=== PATIENT | male | born 1960 | race African-American/Black ===

== ENCOUNTER 2021-12-12 11:39 | Day surgery (SDC) | payer OTHER, SELFPAY ==
[2021-12-12] VITALS (10 sets, daily range): BP systolic 128–157; BP diastolic 75–106; PULSE 54–115; RESP 16–22; TEMP 35.9–36.8; O2SAT 92–100
--- NOTE | ~2021-12-12 | XR_ITS ---
EXAMINATION: XR hand LT min 3V DATE: 12/12/2021 12:11 INDICATION: Left hand injury with a circular saw. TECHNIQUE: 3 views of left hand were obtained. COMPARISON: None. FINDINGS: Bone alignment is normal. No fracture. There is mild osteoarthritis of first carpometacarpa l joint and many of the metacarpophalangeal joints and interphalangeal joints. There is moderate oste oarthritis of third metacarpophalangeal joint, first interphalangeal joint, and second proximal and d istal interphalangeal joints. There is a 1 mm density dorsal to first metacarpophalangeal joint. IMPRESSION: 1. Polyarticular osteoarthritis. 2. 1 mm density dorsal to first metacarpophalangeal joint at or near the skin that may be a foreign b elisa. Reviewed, dictated and finalized at location A. IMPRESSION: 1. Polyarticular osteoarthritis. 2. 1 mm density dorsal to first metacarpophalangeal joint at or near the skin t hat may be a foreign body.
--- NOTE | 2021-12-12 12:11 | PC.NURSE ---
NaCl used for wound cleaning.
--- NOTE | 2021-12-12 13:07 | ED.WOUNDLAC ---
HPI - Wound/Laceration General Chief Complaint: Wound/Laceration Stated Complaint: hand laceration Time Seen by Provider: 12/12/21 12:48 Source: patient Mode of arrival: ambulatory Limitations: no limitations History of Present Illness HPI narrative: 61 y/o male presents to the ER today for evaluation for large laceration to his left hand. He was using a weed eater that had a circular saw blade attached to it. He had it pointed up in the air and to trim vaughn and his left hand brushed up against the blade causing a large laceration across the palm of his hand. He can feel all of his fingers. He can flex and extend all of his fingers normally. He is not sure when he had his last tetanus shot. PMH significant for a fib and he is on blood thinner. Related Data Allergies Allergy/AdvReac Type Severity Reaction Status Date / Time No Known Allergies Allergy Verified 12/12/21 11:55 Review of Systems Constitutional: Constitutional: Denies chills, Denies fever(s) and Denies weakness Eyes: Eyes: Reports no additional eye complaints ENT: Denies dizziness Cardiovascular: Cardiovascular: Reports no additional cardiovascular complaints and Denies chest pain Respiratory: Respiratory: Reports no additional respiratory complaints, Denies chest congestion, Denies cough, Denies dyspnea and Denies wheezing Gastrointestinal: Gastrointestinal: Denies abdominal pain, Denies diarrhea, Denies nausea and Denies vomiting Genitourinary: Genitourinary: Reports no additional male genitourinary complaints Musculoskeletal: Musculoskeletal: Reports no additional musculoskeletal complaints and Reports as per HPI Integumentary/Breasts: Skin/Breast: Reports as per HPI Neurologic: Denies numbness Psychiatric: Psychiatric: Reports no additional psychiatric complaints Endocrine: Endocrine: Reports no additional endocrine complaints [facility] Past Medical History Medical History (Updated 12/12/21 @ 15:49 by Larissa Griffith APRN) Atrial fibrillation Exam Const: General: healthy appearing and no acute distress Orientation/consciousness: patient oriented x3 HENMT: Head: normal to inspection Eyes: Conjunctivae: conjunctivae normal Neck: Neck: normal visual inspection Chest: Chest palpation & inspection: normal inspection of the chest Resp: Effort & Inspection: normal respiratory effort Auscultation: clear to auscultation bilaterally Cardio: Rate: regular rate Rhythm: regular rhythm Back/Spine/Pelvis: Back: no CVA tenderness Skin: General skin exam: normal color Other: 13 cm laceration across palm of hand from base of fifth finger to the proximal thumb, linear, rough edges, no apparent tendon damage, involves the subcutaneous tissue, possibly muscle tissue, bleeding heavily when dressing removed. No arterial spurting noted, no visible FB, distal cap refill intact, ROM of fingers intact, normal sensation to light palpation of the fingers of the left hand. Neuro: General: patient oriented x3 and moves all extremities Extrem: General: normal to inspection Psych: Mental Status: mental status grossly normal Course Course Emergency Course: [address] Cardoso, he will come to see patient when available. 1535 Dr. Cardoso at bedside with the patient. Plan to take patient to the OR for repair of injury. Vital Signs Vital signs: Vital Signs Temperature 36.8 C 12/12/21 11:48 Pulse Rate 93 12/12/21 11:48 Respiratory Rate 16 12/12/21 11:48 Blood Pressure 138/92 H 12/12/21 11:48 Pulse Oximetry 99 12/12/21 11:48 Temperature 36.8 C 12/12/21 11:48 Pulse Rate 93 12/12/21 11:48 Respiratory Rate 16 12/12/21 11:48 Blood Pressure 138/92 H 12/12/21 11:48 Pulse Oximetry 99 12/12/21 11:48 MDM - Wound/Laceration Lab Data Attestation: I reviewed the patient's lab results. Result diagrams: 12/12/21 15:07 12/12/21 15:07 Labs: Lab Results 12/12/21
[2021-12-12] MEDS: HYDROcodone/acetaminophen (*CRX) 7.5-325 MG TABLET 1 TAB PO (13:27)
[2021-12-12] MEDS: TETANUS,DIPHTHERIA,AC PERTUSSIS ADULT (0.5 ML) BOOSTRIX IM (13:27)
[2021-12-12 15:12] LABS: Basophils Percent Auto 0.5 % (0.2-1.2); Eosinophils Absolute Auto 0.1 K/mm3 (0-0.3); Eosinophils Percent Auto 0.6 % (0-4.4); Hematocrit 41.6 % (42.0-52.0); Hemoglobin 12.8 g/dL (14.0-18.0); Immature Granulocyte Absolute 0.02 K/mm3 (0.00-0.031); Immature Granulocyte Percent A 0.2 % (0-0.5); Lymphocytes Absolute Auto 0.84 K/mm3 (0.9-3.2); Lymphocytes Percent Auto 9.8 % (18.3-44.2); Mean Corpuscular HGB Conc 30.8 g/dl (32-36); Mean Corpuscular Hemoglobin 27.9 pg (26-34); Mean Corpuscular Volume 90.8 fl (80-100); Mean Platelet Volume 10.1 fl (7.4-10.4); Monocytes Absolute Auto 0.8 K/mm3 (0.1-0.6); Monocytes Percent Auto 9.2 % (2.6-8.5); Neutrophils Absolute Auto 6.9 K/mm3 (1.3-6.7); Neutrophils Percent Auto 79.7 % (45.5-73.1); Platelet Count Result 186 k/mm3 (150-375); Red Blood Count 4.58 M/mm3 (4.6-6.20); Red Cell Distribution Width 13.2 % (11.5-14.5); White Blood Count 8.6 K/mm3 (4.5-10.0)
[2021-12-12] MEDS: ceFAZolin 2 GM/D5W 50 ML 2 GM/50 ML BAG IVPB (15:18)
[2021-12-12] MEDS: SODIUM CHLORIDE 0.9% IV 1,000 ML 150 ML IV CONT (15:18)
[2021-12-12 15:21] LABS: Alanine Aminotransferase 18 U/L (4-50); Albumin Level 4.2 g/dL (3.5-5.1); Alkaline Phosphatase 67 U/L (38-126); Anion Gap 4 mmol/L (8-16); Aspartate Amino Transferase 30 U/L (17-59); Bilirubin,Total 1.8 mg/dL (0.2-1.3); Blood Urea Nitrogen 11 mg/dL (9-20); Calcium 8.9 mg/dL (8.4-10.2); Carbon Dioxide 32 mmol/L (22-30); Chloride 101 mmol/L (98-107); Estimated CRCL calculation 138 ml/min; Estimated Glomerular Filt Rate > 60; Glucose 119 mg/dL (65-110); Potassium 3.9 mmol/L (3.4-5.0); Sodium 137 mmol/L (137-145)
--- NOTE | 2021-12-12 16:34 | WPDANESEPPF ---
Anes - Initial Pre Proc Eval Procedure: Operation Date: 12/12/21 16:00 Proposed Procedures p Exploration And Repair Saw Injury To Left Palm - Kelvin Cardoso MD Date/Time: 12/12/21 16:34 Surgeon: Kelvin Cardoso MD Pre Op Diagnosis: hand laceration Patient Data Age: 61 Gender: M Height: 1.93 m Weight: 122 kg Last Vital Signs Temp 36.8 C 12/12/21 11:48 Pulse 93 12/12/21 16:02 Resp 16 12/12/21 16:02 BP 138/95 H 12/12/21 16:02 Pulse Ox 99 12/12/21 16:02 Allergies Allergy/AdvReac Type Severity Reaction Status Date / Time No Known Allergies Allergy Verified 12/12/21 11:55 Laboratory Tests 12/12/21 12/12/21 15:07 15:07 WBC 8.6 K/mm3 K/mm3 (4.5-10.0) RBC 4.58 M/mm3 L M/mm3 (4.6-6.20) Hgb 12.8 g/dL L g/dL (14.0-18.0) Hct 41.6 % L % (42.0-52.0) MCV 90.8 fl fl (80-100) MCH 27.9 pg pg (26-34) MCHC 30.8 g/dl L g/dl (32-36) RDW 13.2 % % (11.5-14.5) Plt Count 186 k/mm3 k/mm3 (150-375) MPV 10.1 fl fl (7.4-10.4) Immature Gran % (Auto) 0.2 % % (0-0.5) Neut % (Auto) 79.7 % H % (45.5-73.1) Lymph % (Auto) 9.8 % L % (18.3-44.2) [place] % (Auto) 9.2 % H % (2.6-8.5) Eos % (Auto) 0.6 % % (0-4.4) Baso % (Auto) 0.5 % % (0.2-1.2) Lymph # (Auto) 0.84 K/mm3 L K/mm3 (0.9-3.2) [place] # (Auto) 0.8 K/mm3 H K/mm3 (0.1-0.6) Eos # (Auto) 0.1 K/mm3 K/mm3 (0-0.3) Baso # (Auto) 0.0 K/mm3 K/mm3 (0.0-0.1) Abs Immat Gran (auto) 0.02 K/mm3 K/mm3 (0.00-0.031) Absolute Neuts (auto) 6.9 K/mm3 H K/mm3 (1.3-6.7) Absolute Nucleated RBC 0.0 K/mm3 K/mm3 (0.0-0.012) Nucleated RBC % 0.0 % % (0.0-0.2) Sodium 137 mmol/L mmol/L (137-145) Potassium 3.9 mmol/L mmol/L (3.4-5.0) Chloride 101 mmol/L mmol/L (98-107) Carbon Dioxide 32 mmol/L H mmol/L (22-30) Anion Gap 4 mmol/L L mmol/L (8-16) BUN 11 mg/dL mg/dL (9-20) Creatinine 0.70 mg/dL mg/dL (0.7-1.3) Estim Creat Clear Calc 138 ml/min ml/min Estimated GFR > 60 (59 - ) Glucose 119 mg/dL H mg/dL (65-110) Calcium 8.9 mg/dL mg/dL (8.4-10.2) Total Bilirubin 1.8 mg/dL H mg/dL (0.2-1.3) AST 30 U/L U/L (17-59) ALT 18 U/L U/L (4-50) Alkaline Phosphatase 67 U/L U/L (38-126) Total Protein 8.0 g/dL g/dL (6.3-8.2) Albumin 4.2 g/dL g/dL (3.5-5.1) Patient hx anesthesia problems: none Family hx anesthesia problems: none Results Review: All pre-operative results and documents have been reviewed as part of the pre-operative evaluation. [facility] Past Medical History Medical History (Updated 12/12/21 @ 16:35 by Salvador Deng MD) Atrial fibrillation Chronic a-fib Obesity ADENIKE on CPAP Surgical History Surgical History (Updated 12/12/21 @ 16:36 by Salvador Deng MD) History of total hip arthroplasty History of total knee arthroplasty Anes - Eval Final PreProcedure Day of Procedure 12/12/21 16:34 Patient weight: obese Heart: irregular rhythm Lungs: clear to auscultation Airway: Mallampati scale class II Neurological: alert and oriented Last oral intake: >/= 8 hours (coffee at 9am) ASA classification: III Emergent: no Anesthetic plan: proceed Anesthesia type and monitoring: general LMA and standard monitoring Results Review: All pre-operative results and documents have been reviewed as part of the pre-operative evaluation. Informed Consent: The patient's anesthetic plan and its attendant risks and benefits were discussed with the patient/family/POA. Questions were solicited and answers provided to the satisfaction of the patient/family/POA.
[2021-12-12] MEDS: LACTATED RINGERS 1,000 ML 30 ML IV CONT (16:35)
[2021-12-12] MEDS: ONDANSETRON INJ 4 MG/2 ML VIAL IV PUSH (16:50)
[2021-12-12] MEDS: FAMOTIDINE 20 MG/2 ML VIAL IV PUSH (16:53)
--- NOTE | 2021-12-12 17:18 | SUR.PREOP ---
Patient towels saturated and changed about 1615.
[2021-12-12] MEDS: fentaNYL CITRATE INJ (*CRX) 100 MCG/2 ML VIAL 25 MCG IV PUSH ×8 (18:10→19:24)
--- NOTE | 2021-12-12 20:18 | W.PM.PROC2 ---
Procedure Note - Detailed Date of Procedure 12/12/21 Pre-op Diagnosis hand laceration Post-op Diagnosis Same Procedure Performed Complex repair 12 cm laceration of the left palm Surgeon Kelvin Cardoso MD Data Entry Email Processor Jon Anesthesia General Indications This relatively healthy 61-year-old male sustained a power saw laceration across the proximal 3rd of his palm today while trimming tree limbs with this device. He came to the ER with some profuse bleeding. I was called to see him in the emergency room because of the inability of the staff to quell the bleeding. The patient was very cooperative. He demonstrated no loss of sensation or flexor function although the thenar mass was obviously lacerated fairly deep plate He has a history of sleep apnea and atrial fibrillation and is on Eliquis for the latter. He is a nonsmoker, is not diabetic. He consented to allow us to taken to surgery where he would be explored and repaired as needed under general anesthesia. Findings 12 cm deep palmar laceration from a powered tree trimming saw involving thenar muscle palmar fascia and subcutaneous tissue Description of Procedure The patient was evaluated by me in the emergency room and a firm bandage reapplied to his hand. He was taken to the preop area where he was prepared for surgery and was visited by Anesthesia. He was taken to the operating room where he was placed supine on the operating table. The IV had already been started patient was stable he was administered general endotracheal anesthesia and the extremity was prepped and draped in usual fashion after inflating the tourniquet to 250 mmHg. The wound was carefully explored and noted to consist primarily of thick thenar muscle laceration. This was in the proximal 3rd of the thenar mass but was several cm distal to the distal palmar crease. I suspected that the recurrent motor branch of the median nerve would not a been injured. Nevertheless we were not able to find. Several tiny arterioles were cauterized. Across the mid palm palmar fascia was noted to be somewhat shredded. There were no deep tendons visualized and no large neurovascular bundles were identified within this wound. There was very little clot within this wound as the patient was on Eliquis. We were able to flex and extend the digits and not visualize any movement of tendons at the base of this wound. Ragged skin edges were then sharply trimmed from both sides with scissors. We then copiously irrigated the wound and closed the wound with running 4-0 nylon suture and a bulky bandage was applied. Estimated Blood Loss -10.0 Tourniquet Time 28 Drains No Packing No Pathology None sent Complications No immediate complications Condition Stable Disposition PACU
== END 2021-12-12 20:17 | disposition home or self-care (01) ==
LOC: ANHED 13:24 → ANHSURGERY 15:41
PROVIDERS: Emergency Provider Nurse Practitioner Family; PCP Nurse Practitioner Family; Visit Provider Plastic Surgery
PROC: (CPT 13132; principal; 2021-12-12 16:00)
DX: S61.412A Laceration without foreign body of left hand, initial encounter (principal); W29.3XXA Contact with powered garden and outdoor hand tools and machinery, initial encounter; I48.20 Chronic atrial fibrillation, unspecified; G47.33 Obstructive sleep apnea (adult) (pediatric); E66.9 Obesity, unspecified; Z68.32 Body mass index [BMI] 32.0-32.9, adult; Z79.01 Long term (current) use of anticoagulants; Z23 Encounter for immunization
CPT/HCPCS: 13132; 13133; 36415; 73130; 80053; 85025; 90471; 90715; 96365; 99285; A9270; J0690; J2250; J2405; J2704; J3010; J7030; J7120